=== PATIENT | female | born 1985 | race African-American/Black ===

== ENCOUNTER 2017-02-20 21:22 | Inpatient (IN) | payer OTHER ==
--- NOTE | ~2017-02-20 | DS ---
Unit #: [id number] #: [id number] Patient: DA MANZANO [id number] [place] [address] [id number] MR#: [id number] NAME: DA MANZANO ROOM: [facility] Age: 31 Sex: F Admission Date: 02/20/2017 : 1985 Discharge Date: 02/24/2017 Attending Physician: Joseluis Galo M.D. Primary Care Physician: Primary Care Physician No DISCHARGE SUMMARY REASON FOR ADMISSION Opiate dependency with anxiety disorder. DIAGNOSTIC STUDIES Pertinent laboratory data, the patient had routine chemistry done which included a CMP that was grossly within normal parameters with the exception of a potassium slightly low at 3.2. CBC showed slightly elevated white blood cell count of 18, MCV of 82.2, MCH is 26.2, otherwise within acceptable parameters. RPR was nonreactive. Urine toxicology screen was positive for marijuana and opiates which was in keeping with her history. Urinalysis showed 1+ leukocyte esterase, positive for nitrates, 1+ urobilinogen, 2+ blood, 5-10 white blood cells, she has one 4+ bacteria and now level is within acceptable parameters. HOSPITAL COURSE The patient was admitted for safety and stabilization for long-standing history of prescription opiate dependency. The patient had been given prescriptions both legitimately and illegally off the street that was excessive of more than a dozen pills a day, various strengths over the last several years. The patient was noting escalating problem with the cost and tolerance that lead her to the point where she decided she needed to get off of them. The patient complained of symptoms of aches and pains with exceptionally poor sleep and anxiety, and vague SI upon being evaluated but denied any of that when she was on the unit as well as symptoms of sweats, mild tremors, upset stomach, diarrhea, vomiting. Overall, the patient was placed on detox protocol and tolerated it well. During the course of the hospitalization her symptoms gradually improved. The patient complained frequently of anxiety as being a primary symptom of both the detox as well as established mood issue. She had been put on initially trazodone for sleep with no effect, transferred over to Seroquel and just by titrating it to 300 mg it was still ineffective, so prior to discharge the patient had been placed on Zyprexa 20 mg at nighttime to help with mood stabilization, anxiety, and sleep for which she tolerated much better. The patient also received a p.r.n. Vistaril 50 mg every six hours as needed for breakthrough anxiety here in the hospital with positive benefit. At the time of discharge, the patient's mood was better. She was much more bright and interactive. She still seemed fairly isolative to self through most of the hospitalization but at the time of discharge, there was a marked improvement in her overall condition. No SI. No other mood severe Unit #: [id number] #: [id number] Patient: DA MANZANO complications of that nature. She was future and goal-oriented to go home to her family, go back to work, follow up with primary care doctor. It was felt that the patient had reached maximum benefit from admission and was appropriate for discharge. DISCHARGE DIAGNOSES [place] I Opiate dependency with withdrawal. Generalized anxiety disorder. [place] II [place] III [place] IV [place] V DISCHARGE FOLLOWUP Will be with her primary care doctor. Of note, the patient was determined to have a urinary tract infection which she apparently has frequently and had antibiotics at [facility] which she will restart and follow up with her primary care doctor for further care. A consult was placed for the in-house nurse practitioner who had not seen her by the time of discharge. DISCHARGE MEDICATIONS Include: 1. Zyprexa 20 mg at bedtime for anxiety and sleep 2. Vistaril 50 mg every six hours as needed for breakthrough anxiety CONDITION AT DISCHARGE Improved. PROGNOSIS Hopeful given her motivational factors. DIET AND ACTIVITY Diet is regular. Activity is as tolerated. Sobriety encouraged. Community resources are also provided to the patient for additional options should she seek them. Dictated by... Joseluis Galo M.D. ALISSA/siddhartha TD: 02/24/2017 11:03 JOB #: [id number] Unit #: [id number] #: [id number] Patient: DA MANZANO DISCHARGE SUMMARY Page 1 of 1 X Joseluis Galo MD X DISCHARGE SUMMARY
--- NOTE | ~2017-02-20 | PN ---
Unit #: [id number] #: [id number] Patient: DA MANZANO [id number] [facility] [address] [place] [address] [id number] I MR#: [id number] NAME: DA MANZANO ROOM: [facility] Age: 31 Sex: F Admission Date: 02/20/2017 : 1985 Attending Physician: Joseluis Galo M.D. Admitting Physician: Joseluis Galo M.D. Primary Care Physician: Primary Care Physician Astrid FINK PROGRESS NOTES DATE 02/23/2017 SUBJECTIVE UPDATE This is a 31-year-old female who is here with ongoing issues with substance detox, dependency as well as comorbid mood issues. Patient continues to report limited sleep despite markedly increased doses of Seroquel. She did get better sleep last night, several hours compared to the night before where it was broken and limited. Vital signs are improving. She is still complaining of issues with anxiety, depression, sleep issues, poor appetite, some upset stomach and headache issues but she notes the tremors and sweating are gone. Overall, patient making progress but still not as improved as she wishes to be. MENTAL STATUS EXAMINATION General appearance is a moderately groomed female, fairly good eye contact. Speech was clear and coherent, normal prosody. Mood is "anxious," depressed with blunted affect. Thought process and content were grossly organized and linear. No overt evidence of psychosis. Patient denied any active SI or HI. Patient's memory was grossly intact. Associations were normal. Cognitive function was at baseline. She was alert and oriented times four. Insight and judgement is limited but improving. RECOMMENDATIONS Will continue patient's admission for safety and stabilization with ongoing issues with her detox symptoms and comorbid mood problems. Will discontinue Seroquel tonight in favor of 20 mg of Zyprexa, hopes it will be better for her mood as well as for sleep. Patient educated about these changes. She was in agreement. Most likely disposition tomorrow if symptoms continue to improve depending on how patient's response goes tonight. Dictated by... Valdemar Moctezuma/edison Unit #: [id number] #: [id number] Patient: AD MANZANO TD: 02/23/2017 17:26 JOB #: [id number] ALEKS PROGRESS NOTES Page 1 of 1 X Joseluis Galo MD PROGRESS NOTE
--- NOTE | ~2017-02-20 | PN ---
Unit #: [id number] #: [id number] Patient: DA MANZANO [id number] [facility] [address] [place] [address] [id number] I MR#: [id number] NAME: DA MANZANO ROOM: [facility] Age: 31 Sex: F Admission Date: 02/20/2017 : 1985 Attending Physician: Joseluis Galo M.D. Admitting Physician: Joseluis Galo M.D. Primary Care Physician: Primary Care Physician Astrid FINK PROGRESS NOTES DATE 02/22/2017 SUBJECTIVE UPDATE This is a 31-year-old female who is here with ongoing issues of significant detox and mood disorder issues. The patient continuing to report issues with poor sleep despite trazodone and Seroquel last night upset stomach, some mild diarrhea, nausea and vomiting but she says they are better today still having some problems with sweats, chills, aches, headaches and of (1)___ anxiety and depression as prominent symptoms. No active SI today though. The patient does say she has felt somewhat better than yesterday but primary symptoms still remained limited improvement. MENTAL STATUS EXAM General appearance is a moderately groomed female fairly pleasant and cooperative responsive with good eye contact. Speech was clear and coherent normal prosody. Mood was "depressed", anxious with a constricted affect. Thought process and content were grossly organized and linear. No overt evidence of psychosis. No SI, no HI reported or elicited. Memory reported is intact. Associations were normal. Cognitive function is at baseline. She is alert and oriented x4. Insight and judgment is limited but improving. RECOMMENDATIONS We will continue the patient's admission for safety and stabilization for ongoing issues with detox symptoms and mood problems. The patient making progress but symptoms still noted as above. We will increase Seroquel from 100 to 300 mg at night to better help with mood and sleep issues as response was limited last night. The patient encouraged to be ambulatory during the daytime. No naps or sleeping if it all possible to help minimize (2) and shifts. The patient is in agreement. Continue to monitor daily. Dictated by... Joseluis Galo M.D. SB/kelly Unit #: [id number] #: [id number] Patient: DA MANZANO TD: 02/23/2017 01:39 JOB #: [id number] ALEKS PROGRESS NOTES Page 1 of 1 X Joseluis Galo MD PROGRESS NOTE
--- NOTE | ~2017-02-20 | CO ---
Unit #: [id number] #: [id number] Patient: DA MANZANO [id number] [place] [address] [id number] I MR#: [id number] NAME: DA MANZANO ROOM: [facility] Age: 31 Sex: F Admission Date: 02/20/2017 : 1985 Attending Physician: Joseluis Galo M.D. Primary Care Physician: Primary Care Physician No Consultation Date: 02/21/2017 CONSULTATION REPORT SUBJECTIVE Da is a 31-year-old admitted because of her drug use. As part of her detox symptoms, she has been experiencing quite a bit of diarrhea and she complains of significant irritation. We will treat her with a Desitin ointment q.4 hours p.r.n. She is let us know if she is having any other problems. Dictated by... Barbie Estrada P.A.-C. for Valdemar Miranda/norma TD: 02/24/2017 22:20 JOB #: [id number] CONSULTATION REPORT Page 1 of 1 X Barbie Estrada CONSULTATION REPORT
--- NOTE | ~2017-02-20 | HP ---
Unit #: [id number] #: [id number] Patient: DA MANZANO [id number] [place] [address] [id number] I MR#: [id number] NAME: DA MANZANO ROOM: [facility] Age: 31 Sex: F Admission Date: 02/20/2017 : 1985 Attending Physician: Joseluis Galo M.D. Admitting Physician: Joseluis Galo M.D. Primary Care Physician: Primary Care Physician No HISTORY AND PHYSICAL HISTORY OF PRESENT ILLNESS Da is a 31-year-old admitted to [facility] because of her drug use. She abuses pain pills. PAST MEDICAL HISTORY 1. Long history of opioid abuse. 2. Obesity. PAST SURGICAL HISTORY Cholecystectomy. ALLERGIES No known drug allergies. SOCIAL HISTORY Smokes one pack per day. Drinks alcohol on occasion. Admits to using 80 to 120 mg of some kind of opioid on a daily basis. FAMILY HISTORY Medically noncontributory. REVIEW OF SYSTEMS CONSTITUTIONAL: No fever or chills. HEENT: Denies any sore throat, ear pain or runny nose. CARDIOVASCULAR: Denies chest pain, irregular heart rhythm or palpitations. CHEST: Denies shortness of breath or cough. No hemoptysis. GASTROINTESTINAL: Denies nausea, vomiting, diarrhea or chronic constipation. ENDOCRINE: Denies history of increased thirst or urination. No recent significant weight loss or gain. GENITOURINARY: Denies dysuria, frequency, or hematuria. SKIN: Denies any rashes. HEMATOLOGIC: Denies history of increased bleeding or bruising. MUSCULOSKELETAL: Denies any hot, swollen joints. No generalized muscle pain. NEUROLOGIC: Denies problems with vision or speech. No frequent, severe headaches. No numbness, tingling or weakness in any extremities. Denies loss of bladder or bowel control. CURRENT MEDICATIONS Detox protocol. PHYSICAL EXAMINATION Unit #: [id number] #: [id number] Patient: DA MANZANO GENERAL: Alert, obese. No apparent distress. VITAL SIGNS: Blood pressure 120/84, heart rate 90, respirations 16, and temperature 98.6. WEIGHT: 253. HEIGHT: 5 feet 7 inches. SKIN: Warm and dry without rash or lesion. HEENT: Normocephalic. TMs not viewed. Oral and nasal passages clear. Conjunctivae clear. PERRLA. EOMs intact. NECK: Supple without lymphadenopathy or thyromegaly. HEART: Regular rate and rhythm without murmur. LUNGS: Clear. ABDOMEN: Soft, nontender. : Not done. EXTREMITIES: No evidence of cyanosis, clubbing or edema. Moves all without focal deficit. NEUROLOGICAL: Grossly within normal limits. Cranial Nerves: II: Visual tapia are intact. III, IV AND : Extraocular movements are intact. Pupils are equal, round and reactive to light. V: Facial sensation is grossly normal. VII: Facial movements and expression are normal. VIII: Auditory acuity grossly intact. IX, X: Uvula is midline. Phonation is normal. XI: Patient shrugs shoulders and turns head normally. XII: Tongue protrudes in the midline. Sensory and Motor Function: Sensory and motor sensation is grossly normal. Motor: moves all extremities well. Coordination: Gait is normal. Deep Tendon Reflexes: Intact. IMPRESSION Psychiatric admission. RECOMMENDATIONS PSYCHIATRIC: Per psychiatrist. MEDICAL: I see no contraindication to participate in this facility's activities. MEDICAL PROGNOSIS Good. MEDICAL CONDITION Stable. Dictated by... Barbie Estrada P.A.-C. for Valdemar Miranda/doug TD: 02/22/2017 07:53 JOB #: [id number] Unit #: [id number] #: [id number] Patient: DA MANZANO HISTORY AND PHYSICAL Page 1 of 1 X Barbie Estrada HISTORY AND PHYSICAL
--- NOTE | ~2017-02-20 | PA ---
Unit #: [id number] #: [id number] Patient: DA MANZANO [id number] [place] [address] [id number] I MR#: [id number] NAME: DA MANZANO ROOM: P179 Age: 31 Sex: F Admission Date: 02/20/2017 : 1985 Date of Assessment: 02/21/2017 Attending Physician: Joseluis Galo M.D. Admitting Physician: Joseluis Galo M.D. Primary Care Physician: Primary Care Physician No PSYCHIATRIC ASSESSMENT DATE OF SERVICE 02/21/2017. LOCATION [facility], room #179, bed #1. INFORMANTS The patient and chart, both seem reliable. CHIEF COMPLAINT "I need to stop using pills." HISTORY OF PRESENT ILLNESS This is a 31-year-old female, who comes in with a 10+ history of near daily opioid use. The patient apparently has been using prescription pain medications, both from those prescribed by providers of various "accidents over the years" to mostly buying them off the streets. The dose is in tight range, but anywhere from 12 to 16 pills a day depending on the strengths. The patient has never been through withdrawal before and she cites her motivation now for stopping use and getting clean as the escalating cost. The patient has 3 children at home and she has been able to support them appropriately, but she knows that the escalating cost will soon become a problem and she wants to be there for herself and them and get this habit behind her. No acute emotional issues other than anxiety and stress. She is complaining of aches and pains, headaches, restless leg, poor sleep, had not slept in 2 days, upset stomach, diarrhea, some nauseousness, but no overt vomiting, poor energy. The patient is motivated for treatment at this time. Denied any other drugs at this time. PAST PSYCHIATRIC HISTORY None. No overt treatment inpatient around the history of medications. No history of SI, HI or psychosis lately. FAMILY HISTORY Noncontributory. SOCIAL HISTORY Three children, some support network in place, but limited overall. MEDICAL HISTORY Nothing contributory. Unit #: [id number] #: [id number] Patient: DA MANZANO MEDICATION HISTORY None. ALLERGIES Include no known drug allergies. SUBSTANCE ABUSE HISTORY As noted above. No history of treatment. No history of overt detox complications or truly have been to detox process at all. The other drugs of abuse per patient being on occasional marijuana and social alcohol use. MENTAL STATUS EXAMINATION General appearance; this is a moderately groomed female, appears stated age, fairly cooperative, responsive during the interview process. Speech was clear and coherent, normal prosody. Mood was dysphoric with a constricted affect. Thought process and content were grossly organized and linear. No overt evidence of psychosis. No SI, no HI reported or elicited. The patient's memory was grossly intact. Associations were normal. Cognitive function was at baseline. She is alert and oriented x4. Judgment is moderate at best. ASSETS AND LIABILITIES Assets include fair support network, some insight. Liabilities include limited support. No previous exposure to treatment and/or detox process. Last use was 3 days ago. ADMITTING DIAGNOSIS Opioid dependency with withdrawal. PSYCHIATRIC PLAN Continue the patient's admission for safety and stabilization for ongoing issues with detox symptoms as noted above. Detox protocol in place. Medications being started and monitoring in place. We will also notify the nurse practitioner for med consult for the issues going on with rash because of her diarrhea. Trazodone will also be offered 100 mg at bedtime for sleep. The patient has already been provided with Vistaril 50 mg every 6 hours as needed for breakthrough anxiety. Treatment goal will be resolution of symptoms in safe controlled manner under careful monitoring with discharge planning most likely require community resources on an outpatient basis. ESTIMATED LENGTH OF STAY Approximately 4 to 5 days depending on the patient's progress and response to treatment. Dictated by... Valdemar Moctezuma/norma TD: 02/22/2017 02:45 JOB #: [id number] Unit #: [id number] #: [id number] Patient: DA MANZANO PSYCHIATRIC ASSESSMENT Page 1 of 1 X Joseluis Galo MD PSYCHIATRIC ASSESSMENT
[2017-02-21 10:05] LABS: BASOPHIL# 0.1 X10e3 (0-0.3); BASOPHIL% 0.4 % (0-2.5); EOSINOPHIL# 0.1 X10e3 (0-0.7); EOSINOPHIL% 0.3 % (0.0-7.0); HEMATOCRIT 41.3 % (35.0-45.0); HEMOGLOBIN 13.2 gm/dL (12.0-16.0); LYMPHOCYTE% 22.3 % (17.0-45.0); MEAN CELL VOLUME 82.2 FL (83-96); MEAN CORPUSCULAR HEMOGLOBIN 26.2 PG (28-34); MEAN CORPUSCULAR HGB CONC 31.9 g/dL (30-36); MEAN PLATELET VOLUME 10.1 FL (6.5-11.5); MONOCYTE# 1.1 X10e3 (0-1.0); MONOCYTE% 6.3 % (3.0-12.0); NEUTROPHIL# 12.8 X10e3 (1.5-7.1); NEUTROPHIL% 70.7 % (40-75); PLATELET COUNT 247 X10e3 (140-420); RED BLOOD COUNT 5.02 X10e (3.90-5.30); RED CELL DISTRIBUTION WIDTH 13.7 % (11.0-15.5)
[2017-02-21 10:07] LABS: DIFF IND YES
[2017-02-21 10:21] LABS: ALBUMIN SERUM 4.2 g/dL (3.5-5.0); BILIRUBIN,TOTAL 1.2 mg/dL (0.2-2.0); BUN/CREATININE RATIO 14.28; CALCIUM SERUM 9.3 mg/dL (8.4-10.2); CREATININE SERUM 0.7 mg/dL (0.6-1.4); GLOM FILT RATE Estimated 134.8 mL/min (>60); POTASSIUM 3.2 mmol/L (3.5-5.1); PROTEIN TOTAL SERUM 7.2 g/dL (6.0-8.3)
[2017-02-21 10:45] LABS: PLATELET ESTIMATE NORMAL (NORMAL)
[2017-02-22 10:26] LABS: AMPHETAMINE NEG (NEG); BARBITURATES NEG (NEG); BENZODIAZEPINES NEG (NEG); COCAINE NEG (NEG); MARIJUANA POS (NEG); OPIATES POS (NEG); TRICYCLIC ANTIDEPRESSANTS NEG (NEG); U METHADONE NEG (NEG)
[2017-02-23 10:30] LABS: URINE APPEARANCE CLOUDY; URINE BILIRUBIN NEG (NEG); URINE BLOOD 2+ (NEG); URINE COLOR YELLOW; URINE GLUCOSE NEG (NEG); URINE KETONE NEG (NEG); URINE LEUKOCYTE ESTERASE 1+ (NEG); URINE NITRATE POS (NEG); URINE PROTEIN NEG (NEG); URINE SPECIFIC GRAVITY 1.017 (1.003-1.035)
[2017-02-23 10:35] LABS: URBCS1 AUWI 0-2 /[HPF] (0-2); URINE BACTERIA AUWI 4+ (NEGATIVE); URINE SQUAMOUS EPITHELIAL CELL MOD /[HPF]
== END 2017-02-24 12:31 | disposition home or self-care (01) | DRG 897 ==
LOC: P1E 23:25
PROVIDERS: Psychiatry & Neurology Psychiatry
PROC: HZ2ZZZZ Detoxification Services for Substance Abuse Treatment (ICD-10-PCS; principal; 2017-02-20)
DX: F11.23 Opioid dependence with withdrawal (principal); E66.9 Obesity, unspecified; F41.1 Generalized anxiety disorder; F17.210 Nicotine dependence, cigarettes, uncomplicated; R21 Rash and other nonspecific skin eruption
CPT/HCPCS: 80053; 80307; 81003; 84703; 85025; 86592